=== PATIENT | female | born 2000 ===

== ENCOUNTER 2018-06-20 13:59 | Outpatient (REF) | payer OTHER, SELFPAY ==
[2018-06-24 14:11] LABS: Chlamydia Result Negative; GC Result Negative
== END 2018-06-20 14:19 ==
LOC: NCHCN 13:59
PROVIDERS: PCP Nurse Practitioner Family; Visit Provider Nurse Practitioner Family
DX: R10.31 Right lower quadrant pain (principal); Z11.3 Encounter for screening for infections with a predominantly sexual mode of transmission
CPT/HCPCS: 87491; 87591